=== PATIENT | female | born 1985 | race Hispanic/Latino ===

== ENCOUNTER 2019-10-29 00:09 | Inpatient (IN) | payer SELFPAY ==
[2019-10-29] VITALS (26 sets, daily range): BP systolic 97–154; BP diastolic 52–82; PULSE 84–138; RESP 16–26; TEMP 36.7–37.5; O2SAT 97–100; BMI 27.2
--- NOTE | ~2019-10-29 | US_ITS ---
US right upper quadrant INDICATION: Elevated liver function tests PROCEDURE: Realtime right upper abdominal ultrasound. COMPARISON: No prior studies for comparison. FINDINGS: The pancreas is normal without focal mass or pancreatic ductal dilation. Liver echotexture is normal without focal mass or intrahepatic biliary dilatation. There is normal directional flow i n the portal vein. The gallbladder is normal without stones, gallbladder wall thickening or pericholecystic fluid. Comm on bile duct measures 4 mm. No sonographic Hollis's sign. IMPRESSION: 1: Normal limited abdominal ultrasound. Reviewed, dictated and finalized at location A.
[2019-10-29 00:21] LABS: Glucose Point of Care > 500 (65-105)
[2019-10-29] MEDS: ONDANSETRON INJ 4 MG/2 ML VIAL IV PUSH (00:35)
[2019-10-29] MEDS: SODIUM CHLORIDE 0.9% IV 1,000 ML 999 ML IV CONT ×4 (00:35→05:47)
[2019-10-29 00:42] LABS: Basophils Absolute Auto 0.1 K/mm3 (0.0-0.1); Basophils Percent Auto 0.4 % (0.2-1.2); Hematocrit 45.2 % (37.0-47.0); Hemoglobin 14.2 g/dL (12.0-15.0); Immature Granulocyte Absolute 0.35 K/mm3 (0.00-0.031); Immature Granulocyte Percent A 1.5 % (0-0.5); Lymphocytes Absolute Auto 1.74 K/mm3 (0.9-3.2); Lymphocytes Percent Auto 7.3 % (18.3-44.2); Mean Corpuscular HGB Conc 31.4 g/dl (32-36); Mean Corpuscular Hemoglobin 28.1 pg (26-34); Mean Corpuscular Volume 89.3 fl (80-100); Mean Platelet Volume 10.2 fl (7.4-10.4); Monocytes Absolute Auto 1.7 K/mm3 (0.1-0.6); Monocytes Percent Auto 7.3 % (2.6-8.5); Neutrophils Absolute Auto 19.8 K/mm3 (1.3-6.7); Neutrophils Percent Auto 83.5 % (45.5-73.1); Platelet Count Result 470 k/mm3 (150-375); Red Blood Count 5.06 M/mm3 (4.2-5.4); Red Cell Distribution Width 12.7 % (11.5-14.5); White Blood Count 23.7 K/mm3 (4.5-10.0)
[2019-10-29 00:49] LABS: Add Urine Microscopic? YES; Appearance Urine Clear (Clear); Bilirubin Urine Negative (Negative); Blood Urine Negative (Negative); Color Urine Colorless (Yellow); Glucose Urine UA 3+ mg/dL (Negative); Ketones Urine 2+ mg/dL (Negative); Leukocyte Esterase Ur Negative LEU/UL (Negative); Mucus Urine Rare /lpf; Nitrate Urine Negative (Negative); Protein Urine 2+ mg/dL (Negative); RBC Urine 0-2 /hpf (0-2); Specific Grav Ur 1.015 (1.001-1.035); Squamous Epithelial Cell Urine Rare /hpf (Few); Urobilinogen Urine Negative mg/dL (<2.0); WBC Urine 0-3 /hpf
[2019-10-29 00:54] LABS: Alveolar/Arterial O2 Gradient 75.9 mmHg; Base Excess ABG -25.2 mEq/l (+/-2.0); Carboxyhemoglobin 0.4 % THb (0-2.0); Fractional Inspired Oxygen 21 %; HCO3 ABG 5.8 mEq/l (22.0-26.0); Methemoglobin ABG 0.6 %THb (0-1.5); Oxygen Content ABG 12.3 %vol (16.0-22.0); Oxyhemoglobin 58.3 % THb (90.0-100.0); PCO2 ABG 26.6 mmHg (35.0-45.0); Reduced Hemoglobin 40.7 %THb (0-5.0)
[2019-10-29 00:58] LABS: Modified Allen's Test Pass; Oxygen Saturation ABG 52.1 % (95.0-100.0); Site Drawn LEFT RADIAL; pH ABG 6.958 (7.350-7.450)
[2019-10-29 00:59] LABS: Device ROOM AIR
[2019-10-29] MEDS: INSULIN HUMAN REGULAR (*BKC) 100 UNITS in SODIUM CHLORIDE 0.9% IV 99 ML 8.8 UNITS IV CONT (01:05)
[2019-10-29 01:19] LABS: Alanine Aminotransferase 21 U/L (4-35); Albumin Level 5.2 g/dL (3.5-5.1); Alkaline Phosphatase 121 U/L (38-126); Aspartate Amino Transferase 33 U/L (14-36); Bilirubin,Total 0.8 mg/dL (0.2-1.3); Blood Urea Nitrogen 17 mg/dL (7-17); Calcium 9.5 mg/dL (8.4-10.2); Carbon Dioxide < 5 mmol/L (22-30); Chloride 100 mmol/L (98-107); Estimated CRCL calculation 80 ml/min; Estimated Glomerular Filt Rate > 60; Magnesium 2.1 mg/dL (1.6-2.3); Phosphorus 7.6 mg/dL (2.5-4.5); Potassium 5.2 mmol/L (3.4-5.0); Sodium 136 mmol/L (137-145)
--- NOTE | 2019-10-29 01:42 | ED.NAVMDI ---
HPI - Nausea/Vomiting/Diarrhea General Chief complaint: Recheck/Abnormal Lab/Rx Stated complaint: dka Time Seen by Provider: 10/29/19 00:19 Source: patient Mode of arrival: ambulatory Limitations: no limitations History of Present Illness HPI Narrative: Patient is a 41-year-old female who presents to the emergency department with complaint of nausea and vomiting, high blood sugar, and feeling as though she is in DKA. Patient is a type I diabetic who is normally maintained on insulin pump. Patient does not regularly check her blood sugar and states when she does it typically runs in the 200s. Patient reports having approximately 8 beers on Wednesday night and waking up with nausea and vomiting yesterday morning. Patient has been unable to keep down fluids all day. She began feeling as though she was in DKA and checked her blood sugar and it was in the 400s. Patient noticed that her insulin pump was not working. Patient did not have any syringes to manually administer any insulin at home. Patient states last time she had checked her blood sugar was a couple of days ago. Patient's last episode of DKA was in April 2018. Patient sees an head sampler at [place]. Patient denies any recent illness symptoms. MD elicited complaint: nausea, vomiting and other (High blood sugar, DKA) Pertinent past history: other (Diabetes) Onset (ago): day(s) (1) Associated nausea: Yes Associated abdominal pain: No Location of pain: none Related Data Allergies Allergy/AdvReac Type Severity Reaction Status Date / Time No Known Allergies Allergy Verified 10/29/19 00:30 Review of Systems Review of Systems: All systems reviewed & are unremarkable except as noted in HPI and below Constitutional: Constitutional: Denies fever(s) Respiratory: Respiratory: Denies cough and Denies dyspnea Gastrointestinal: Gastrointestinal: Denies abdominal pain, Reports nausea and Reports vomiting Genitourinary: Genitourinary: Denies dysuria Musculoskeletal: Musculoskeletal: Denies myalgias PMFSH Past Medical History Medical History Depression DKA (diabetic ketoacidoses) History of pre-eclampsia Type 1 diabetes Surgical History Surgical History History of section Social History Social History Smoking status: Never smoker Alcohol intake: current Exam Const: General: cooperative, no acute distress and alert Nutritional Appearance: well nourished Orientation/consciousness: patient oriented x3 Limitations: no limitations HENMT: Mouth: Yes lip normal and Yes dry mucous membranes Resp: Effort & Inspection: normal respiratory effort and tachypneic Auscultation: clear to auscultation bilaterally Cardio: Rate: tachycardic Rhythm: regular rhythm GI: GI Palp: Yes Soft to palpation and No Tenderness to palpation present (GI) Auscultation: normal bowel sounds Skin: General skin exam: normal color Neuro: General: patient oriented x3 Cognition (Neuro): normal cognition Speech: normal speech Extrem: General: normal to inspection, full ROM and no clubbing, cyanosis or edema Psych: Mental Status: mental status grossly normal Affect: normal affect Attitude: cooperative Course Course Emergency Course: Patient with findings of diabetic ketoacidosis. Patient given 2 L IV fluid bolus in the emergency department and started on insulin drip. Patient admitted to ICU for further care. Case discussed with chainstitch seat joiner and hospitalist. Patient advised of diagnosis and admission plan. Consultations Consultation #1: Case discussed with Dr. Hdz, chainstitch seat joiner, who accepts patient to ICU. Date: 10/29/19 Time: 01:14 Consultation #2: Case discussed with Dr. Lyles, hospitalist, who accepts patient for admission. Date: 10/29/19 Time: 01:25 Vital Signs Vital signs: Vital Signs Temper
--- NOTE | 2019-10-29 01:42 | PC.NURSE ---
called lab to add on HGB A1C
[2019-10-29 01:56] LABS: Glucose Point of Care 376 (65-105)
[2019-10-29 01:57] LABS: Hemoglobin A1C 8.8 % (<5.7)
[2019-10-29 02:00] LABS: Beta-Hydroxybutyrate/Acetoacetate 9.98 mmol/L (0.02-0.27)
--- NOTE | 2019-10-29 03:00 | PC.NURSE ---
This patient, Em Rivera, was admitted to Intensive Care Unit-12. Patient/family oriented to hospital policies and general routines including ID bracelet, bed and alarms, visiting hours, pain management, procedures, bathroom and other care routines, personal items, smoking policy, room service/diet, and visiting hours. Valuables list has been completed. Information on how to activate the Rapid Response Team has been discussed. Patient/Family are encouraged to report perceived risks to care and to ask questions if they do not understand what they are told or what they should do.
[2019-10-29 03:10] LABS: Glucose Point of Care 289 (65-105)
--- NOTE | 2019-10-29 03:33 | PM.IMHP ---
H&P: HPI History of Present Illness Chief complaint: DKA Narrative: This is a 33 year old type I diabetic female who presented to the hospital this evening with a complaint of nausea and vomiting all day yesterday and hyperglycemia. The patient is known to have an insulin pump which states has already failed her 2 times over the past year. She is known to see Endocrinology at [facility]. She reports going out with her friend Gomez night and drinking 8-10 beers. Yesterday morning she woke up with severe nausea and vomiting. She could not tolerate any oral intake and had continuous vomiting throughout the day. She reports also having polyuria. Associated symptoms include mild shortness of breath. 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 She denies any chest pain, palpitations, headache, fever, cough, diarrhea, rectal bleeding, dysuria, hematuria, open wounds or LE swelling. She is not known to be on any long acting insulin. The patient was evaluated in the ER tonight and found to be in acute DKA. Rheostat Assembler has been consulted and the patient has been given 1L NS IV bolus. She has been started on an insulin IV drip. Review of Systems Review of Systems: All systems reviewed & are unremarkable except as noted in HPI and below PMFSH Past Medical History Medical History Depression DKA (diabetic ketoacidoses) History of pre-eclampsia Type 1 diabetes Surgical History Surgical History History of section Family History Family History Sibling Cerebrovascular accident Father Diabetes mellitus Social History Social History Smoking status: Never smoker Second hand tobacco smoke exposure: Yes Alcohol intake: current Drinks per week: 8 Substance use: never Substance use type: does not use Gender identity (if verbalized by the patient): Female Spiritual care concerns: No Agree to blood products: Yes Meds Home Medications and Allergies Home Medications Medication Instructions Recorded Confirmed Type duloxetine [Cymbalta] 20 mg PO DAILY 10/29/19 10/29/19 History Allergies Allergy/AdvReac Type Severity Reaction Status Date / Time No Known Allergies Allergy Verified 10/29/19 00:30 Vital Signs Vital Signs - 24 hr 10/29/19 00:12 10/29/19 00:32 10/29/19 00:33 Temperature 37.4 C Pulse Rate 130 H 121 H 120 H Respiratory Rate 23 H 23 H 23 H Blood Pressure 154/82 H 134/67 Pulse Oximetry 99 100 100 10/29/19 00:45 10/29/19 00:46 10/29/19 01:00 Temperature Pulse Rate 119 H 126 H 121 H Respiratory Rate 20 20 23 H Blood Pressure 112/71 Pulse Oximetry 100 100 100 10/29/19 01:01 10/29/19 01:15 10/29/19 01:59 Temperature Pulse Rate 121 H 118 H 125 H Respiratory Rate 23 H 24 H 26 H Blood Pressure 103/60 Pulse Oximetry 100 100 100 10/29/19 02:00 10/29/19 02:01 10/29/19 02:15 Temperature Pulse Rate 124 H 123 H 138 H Respiratory Rate 25 H 24 H 25 H Blood Pressure 124/64 Pulse Oximetry 100 97 100 10/29/19 02:19 Temperature 37.5 C Pulse Rate 138 H Respiratory Rate 20 Blood Pressure 124/60 Pulse Oximetry 99 Exam Const: General: cooperative, alert and awake Nutritional Appearance: well nourished Orientation/consciousness: patient oriented x3 HENMT: Head: normal to inspection General nose exam: Normal external nose present Face and sinus: normal facial exam Mouth: Yes Normal oral and palatal mucosa present and Yes oropharynx normal Eyes: Pupils: Equal, round and reactive pupils present EOM: EOMs intact bilaterally Neck: Neck: supple and no JVD Thyroid: thyroid normal Lymphatic: lymphadenopathy not noted Resp: Effort & Inspection: tachypneic Auscultation: clear to auscultation bilaterally Cardio: Rate: tac
--- NOTE | 2019-10-29 03:38 | ECG_ITS ---
Measurements Intervals [place] Rate: 124 P: 68 LA: 139 QRS: 71 QRSD: 86 T: 4 QT: 307 QTc: 442 Interpretive Statements SINUS TACHYCARDIA BORDERLINE T WAVE ABNORMALITY- INFERIOR LEADS BASELINE ARTIFACT- II, III, AVR, AVL, AVF ABNORMAL ECG Electronically Signed On 10-29-2019 8:35:47 CDT by Jayy Munson D.O.
[2019-10-29 04:13] LABS: Basophils Absolute Auto 0.1 K/mm3 (0.0-0.1); Basophils Percent Auto 0.4 % (0.2-1.2); Hematocrit 44.3 % (37.0-47.0); Hemoglobin 13.3 g/dL (12.0-15.0); Immature Granulocyte Percent A 2.2 % (0-0.5); Lymphocytes Percent Auto 7.8 % (18.3-44.2); Mean Corpuscular Hemoglobin 27.7 pg (26-34); Mean Corpuscular Volume 92.1 fl (80-100); Mean Platelet Volume 9.9 fl (7.4-10.4); Monocytes Absolute Auto 2.2 K/mm3 (0.1-0.6); Monocytes Percent Auto 9.4 % (2.6-8.5); Neutrophils Absolute Auto 18.4 K/mm3 (1.3-6.7); Neutrophils Percent Auto 80.2 % (45.5-73.1); Platelet Count Result 363 k/mm3 (150-375); Red Blood Count 4.81 M/mm3 (4.2-5.4); Red Cell Distribution Width 12.6 % (11.5-14.5)
[2019-10-29 04:25] LABS: Glucose Point of Care 227 (65-105)
[2019-10-29 04:29] LABS: Blood Urea Nitrogen 15 mg/dL (7-17); Carbon Dioxide 6 mmol/L (22-30); Chloride 112 mmol/L (98-107); Estimated CRCL calculation 90 ml/min; Estimated Glomerular Filt Rate > 60; Glucose 256 mg/dL (65-105); Potassium 4.6 mmol/L (3.4-5.0); Sodium 140 mmol/L (137-145)
[2019-10-29 04:53] LABS: Magnesium 1.8 mg/dL (1.6-2.3)
[2019-10-29 05:14] LABS: Glucose Point of Care 201 (65-105)
[2019-10-29 05:41] LABS: Alveolar/Arterial O2 Gradient 25.8 mmHg; Base Excess ABG -20.3 mEq/l (+/-2.0); Fractional Inspired Oxygen 21 %; HCO3 ABG 6.3 mEq/l (22.0-26.0); Oxygen Content ABG 17.5 %vol (16.0-22.0); Oxygen Saturation ABG 96.3 % (95.0-100.0); Oxyhemoglobin 95.8 % THb (90.0-100.0); PO2 ABG 102.3 mmHg (80.0-100.0); PO2 FiO2 Ratio Arterial Blood 4.87 %; Total Hemoglobin 12.9 g/dL (12.0-18.0)
[2019-10-29 05:43] LABS: Device ROOM AIR; Modified Allen's Test Pass; PCO2 ABG 18.1 mmHg (35.0-45.0); Site Drawn RIGHT RADIAL; pH ABG 7.161 (7.350-7.450)
[2019-10-29 06:07] LABS: Glucose Point of Care 169 (65-105)
[2019-10-29] MEDS: KCL 20 MEQ/D5/0.45% SOD CHL 1,000 ML 50 ML IV CONT (06:46)
[2019-10-29] MEDS: SODIUM BICARBONATE 8.4% 150 MEQ in DEXTROSE 5% 1,000 ML 950 ML 100 MEQ IV PUSH (06:46)
[2019-10-29 07:05] LABS: Glucose Point of Care 137 (65-105)
[2019-10-29 08:12] LABS: Glucose Point of Care 204 (65-105)
[2019-10-29 09:04] LABS: Glucose Point of Care 179 (65-105)
--- NOTE | 2019-10-29 09:19 | WPDCNINT ---
Assessment and Plan Assessment and plan (1) DKA (diabetic ketoacidoses): Qualifiers: Diabetes mellitus complication detail: without coma Diabetes mellitus type: type 1 Qualified Code(s): E10.10 - Type 1 diabetes mellitus with ketoacidosis without coma Code(s): E11.10 - Type 2 diabetes mellitus with ketoacidosis without coma Status: Acute Assessment and Plan: patient on IV insulin infusion received 4 L of IV fluid bolus and now on IV fluids with bicarb at 100 and D5 half-normal saline at 50. IV fluid with bicarb was started started overnight for hyperchloremia and acidosis will continue to monitor serial BMPs every 4 hours I will wait for next result before further adjusting IV fluids (2) Leukocytosis: Code(s): D72.829 - Elevated white blood cell count, unspecified Status: Acute Assessment and Plan: likely secondary to DKA monitor (3) Dehydration: Code(s): E86.0 - Dehydration Status: Acute Assessment and Plan: patient aggressively hydrated and received 4 L of IV fluid bolus continue IV fluids at this time blood pressure adequate (4) Nausea & vomiting: Code(s): R11.2 - Nausea with vomiting, unspecified Status: Acute Assessment and Plan: resolved with Zofran will start on liquid diet and advance as tolerated (5) Hyperkalemia: Code(s): E87.5 - Hyperkalemia Status: Acute Assessment and Plan: secondary to acidosis and has now resolved Manufacturing Process Technician Consult Note Consult date: 10/29/19 Time Seen: 09:00 HPI: Em Rivera is a 33 year old female with past medical history of type 1 diabetes and on insulin pump presented with chief complaint of nausea and vomiting to ER yesterday. patient had 8-10 beers on Wednesday night and when she woke up in the morning with nausea and vomiting. per patient she vomited at least 8 times at home before coming to the hospital. she did not notice any blood or food in the vomitus it was my only liquids that she was trying to drink to remain hydrated. 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 In general she told me she takes around 26-27 units of basal insulin and around 7 units of insulin bolus with meal depending on her carbs. in ED patient was found to be in DKA. patient was given IV fluid bolus and started on IV insulin and admitted to ICU this morning patient feels better and does not have any new complaints. She states that her nausea vomiting has resolved and she would like to eat. She does not want to go back on insulin pump at this time. She denies any other complaint. She denies any chest pain shortness of breath cough headache abdominal pain fever joint aches or muscle aches dysuria hematuria or frequency diarrhea headache dizziness or lightheadedness. no weakness Review of Systems Review of Systems: All systems reviewed & are unremarkable except as noted in HPI and below ( HPI) [facility] Past Medical History Medical History Depression DKA (diabetic ketoacidoses) History of pre-eclampsia Type 1 diabetes Surgical History Surgical History History of section Family History Family History Sibling Cerebrovascular accident Father Diabetes mellitus Social History Social History Smoking status: Never smoker Second hand tobacco smoke exposure: Yes Alcohol intake: current Drinks per week: 8 Substance use: never Substance use type: does not use Gender identity (if verbalized by the patient): Female Spiritual care concerns: No Agree to blood products: Yes Meds Home Medications and Allergies Home Medications Medication Instructions Recorded Confirmed Type duloxetine [Cymbalta] 20 mg P
[2019-10-29 09:23] LABS: Blood Urea Nitrogen 12 mg/dL (7-17); Calcium 7.9 mg/dL (8.4-10.2); Carbon Dioxide 8 mmol/L (22-30); Chloride 115 mmol/L (98-107); Estimated CRCL calculation 104 ml/min; Estimated Glomerular Filt Rate > 60; Glucose 151 mg/dL (65-105); Potassium 4.1 mmol/L (3.4-5.0); Sodium 138 mmol/L (137-145)
[2019-10-29 09:57] LABS: Glucose Point of Care 145 (65-105)
[2019-10-29] MEDS: CALCIUM GLUC 2,000 MG/NS 100ML 2,000 MG/100 ML BAG 100 MG IVPB (10:47)
[2019-10-29 10:48] LABS: Beta HCG Quantitative < 2.39 mIU/ML
[2019-10-29 10:59] LABS: Glucose Point of Care 175 (65-105)
[2019-10-29 12:05] LABS: Glucose Point of Care 161 (65-105)
[2019-10-29 12:49] LABS: Blood Urea Nitrogen 12 mg/dL (7-17); Calcium 8.2 mg/dL (8.4-10.2); Carbon Dioxide 16 mmol/L (22-30); Chloride 110 mmol/L (98-107); Estimated CRCL calculation 149 ml/min; Estimated Glomerular Filt Rate > 60; Glucose 132 mg/dL (65-105); Potassium 3.5 mmol/L (3.4-5.0); Sodium 134 mmol/L (137-145)
[2019-10-29 13:06] LABS: Glucose Point of Care 137 (65-105)
[2019-10-29] MEDS: INSULIN GLARGINE (*BKC) 100 UNITS/ML 20 UNITS SUB-Q (13:59)
[2019-10-29 14:00] LABS: Glucose Point of Care 110 (65-105)
[2019-10-29] MEDS: SODIUM CHLORIDE 0.45% 1,000 ML 75 ML IV CONT (14:00)
--- NOTE | 2019-10-29 14:35 | PM.IMPN ---
Progress Note: A&P Assessment and Plan (1) DKA (diabetic ketoacidoses): Qualifiers: Diabetes mellitus complication detail: without coma Diabetes mellitus type: type 1 Qualified Code(s): E10.10 - Type 1 diabetes mellitus with ketoacidosis without coma Code(s): E11.10 - Type 2 diabetes mellitus with ketoacidosis without coma Status: Acute Assessment and Plan: w/ hyperglycemia, metabolic acidosis w/ elevated anion gap, and elevated serum ketones. IV insulin therapy has transition to SC insulin now that anion gap is at 8 although CO2 is still 16. She received short-acting and Lantus and will advance diet and recheck electrolytes with phosphorus level in 4-5 hours. The patient states she is discontinuing her insulin pump as the most plausible explanation for her acute DKA is that her insulin pump failed. If continues to do well and transitioned and CO2 continues to rise then possibly discharge early as 10/29 (2) Leukocytosis: Code(s): D72.829 - Elevated white blood cell count, unspecified Status: Acute Assessment and Plan: Likely seconadry to acute DKA and dehydration. No signs of acute infection at this time. Recheck CBC and a.m. 10/29 (3) Dehydration: Code(s): E86.0 - Dehydration Status: Acute Assessment and Plan: BUN and creatinine have remained normal and with aggressive hydration fluid status is resuscitated (4) Depression: Code(s): F32.9 - Major depressive disorder, single episode, unspecified Status: Acute Assessment and Plan: Resume home meds when appropriate. Subjective Date/time seen: 10/29/19 14:35 Interval history: Date of visit 10/28. 33-year-old type 1 diabetic admitted with diabetic ketoacidosis with nausea and vomiting. Patient states has been having trouble with her insulin pump which has malfunctioned in the past. She denies any cough dysuria or other symptomatology. After IV fluids and IV insulin she is feeling much better this a.m. Exam Narrative: Exam Narrative: Blood pressure 100/62 pulse is 94 saturating 100% on room air respirations 16 per minute afebrile Pupils equal reactive light sclera anicteric Lungs clear CV regular rate rhythm Abdomen is soft nontender no masses Extremities without edema distal pulses are 2+ Neuro alert pleasant cooperative no focal deficits Objective Data Vital Signs Vital Signs: Vital Signs - 24 hr 10/29/19 00:12 10/29/19 00:32 10/29/19 00:33 Temperature 37.4 C Pulse Rate 130 H 121 H 120 H Respiratory Rate 23 H 23 H 23 H Blood Pressure 154/82 H 134/67 Pulse Oximetry 99 100 100 10/29/19 00:45 10/29/19 00:46 10/29/19 01:00 Temperature Pulse Rate 119 H 126 H 121 H Respiratory Rate 20 20 23 H Blood Pressure 112/71 Pulse Oximetry 100 100 100 10/29/19 01:01 10/29/19 01:15 10/29/19 01:59 Temperature Pulse Rate 121 H 118 H 125 H Respiratory Rate 23 H 24 H 26 H Blood Pressure 103/60 Pulse Oximetry 100 100 100 10/29/19 02:00 10/29/19 02:01 10/29/19 02:15 Temperature Pulse Rate 124 H 123 H 138 H Respiratory Rate 25 H 24 H 25 H Blood Pressure 124/64 Pulse Oximetry 100 97 100 10/29/19 02:19 10/29/19 02:40 10/29/19 03:00 Temperature 37.5 C 37.2 C Pulse Rate 138 H 136 H 131 H Respiratory Rate 20 24 H 24 H Blood Pressure 124/60 128/72 112/72 Pulse Oximetry 99 100 99 10/29/19 04:00 10/29/19 05:00 10/29/19 06:00 Temperature 37.2 C Pulse Rate 122 H 111 H 113 H Respiratory Rate 22 H 24 H 22 H Blood Pressure 109/66 105/58 L 107/60 Pulse Oximetry 100 100 100 10/29/19 08:00 10/29/19 10:00 10/29/19 12:00 Temperature 37.4 C 37.1 C Pulse Rate 114 H 103 H 99 Respiratory Rate 20 Blood Pressure 100/56 L 97/59 L 101/55 L Pulse Oximetry 100 100 99 10/29/19 13:39 10/29/19 14:00 Temperature Pulse Rate 96 95 Respiratory Rate 20 Blood Pressure 100/62 Pulse Oximetry 100 Intake/Output Intake/Output: Intake & Output /
[2019-10-29 16:53] LABS: Albumin Level 3.8 g/dL (3.5-5.1); Blood Urea Nitrogen 12 mg/dL (7-17); Calcium 8.5 mg/dL (8.4-10.2); Carbon Dioxide 17 mmol/L (22-30); Chloride 107 mmol/L (98-107); Estimated CRCL calculation 149 ml/min; Estimated Glomerular Filt Rate > 60; Glucose 89 mg/dL (65-105); Phosphorus 2.9 mg/dL (2.5-4.5); Potassium 3.6 mmol/L (3.4-5.0); Sodium 136 mmol/L (137-145)
[2019-10-29 21:49] LABS: Glucose Point of Care 208 (65-105)
[2019-10-30] VITALS (8 sets, daily range): BP systolic 108–131; BP diastolic 72–101; PULSE 88–99; RESP 16–22; TEMP 36.7–37.5; O2SAT 98–100; BMI 27.2
[2019-10-30 04:57] LABS: Basophils Percent Auto 0.2 % (0.2-1.2); Eosinophils Percent Auto 0.2 % (0-4.4); Hematocrit 43.9 % (37.0-47.0); Hemoglobin 14.2 g/dL (12.0-15.0); Immature Granulocyte Absolute 0.07 K/mm3 (0.00-0.031); Immature Granulocyte Percent A 0.6 % (0-0.5); Lymphocytes Absolute Auto 2.41 K/mm3 (0.9-3.2); Lymphocytes Percent Auto 19.3 % (18.3-44.2); Mean Corpuscular HGB Conc 32.3 g/dl (32-36); Mean Corpuscular Hemoglobin 27.8 pg (26-34); Mean Corpuscular Volume 85.9 fl (80-100); Mean Platelet Volume 9.6 fl (7.4-10.4); Monocytes Absolute Auto 0.8 K/mm3 (0.1-0.6); Monocytes Percent Auto 6.2 % (2.6-8.5); Neutrophils Absolute Auto 9.2 K/mm3 (1.3-6.7); Neutrophils Percent Auto 73.5 % (45.5-73.1); Platelet Count Result 372 k/mm3 (150-375); Red Blood Count 5.11 M/mm3 (4.2-5.4); White Blood Count 12.5 K/mm3 (4.5-10.0)
[2019-10-30 05:11] LABS: Albumin Level 4.1 g/dL (3.5-5.1); Blood Urea Nitrogen 7 mg/dL (7-17); Calcium 8.3 mg/dL (8.4-10.2); Carbon Dioxide 13 mmol/L (22-30); Chloride 105 mmol/L (98-107); Estimated CRCL calculation 122 ml/min; Estimated Glomerular Filt Rate > 60; Glucose 212 mg/dL (65-105); Magnesium 1.8 mg/dL (1.6-2.3); Phosphorus 2.1 mg/dL (2.5-4.5); Potassium 3.5 mmol/L (3.4-5.0); Sodium 134 mmol/L (137-145)
[2019-10-30 06:59] LABS: Albumin Level 4.1 g/dL (3.5-5.1); Phosphorus 2.1 mg/dL (2.5-4.5)
--- NOTE | 2019-10-30 07:00 | WPDINTPN ---
Progress Note: A&P Assessment and Plan (1) DKA (diabetic ketoacidoses): Qualifiers: Diabetes mellitus complication detail: without coma Diabetes mellitus type: type 1 Qualified Code(s): E10.10 - Type 1 diabetes mellitus with ketoacidosis without coma Code(s): E11.10 - Type 2 diabetes mellitus with ketoacidosis without coma Status: Acute Assessment and Plan: Patient was treated with IV fluids and IV insulin on admission. On 10/28, her anion gap closed and patient was transitioned to subcutaneous insulin. BMP done this morning showed a increased anion gap and patient was restarted on insulin infusion. IV fluids resumed and will continue will check BMP every 4 hours and with next BMP I will check beta hydroxybutyrate level once anion gap is closed will transition her back to subcutaneous insulin hyperchloremia has improved will continue to monitor serial BMPs every 4 hours I will wait for next result before further adjusting IV fluids (2) Leukocytosis: Code(s): D72.829 - Elevated white blood cell count, unspecified Status: Acute Assessment and Plan: likely secondary to DKA improving monitor (3) Dehydration: Code(s): E86.0 - Dehydration Status: Acute Assessment and Plan: patient aggressively hydrated and received 4 L of IV fluid bolus continue IV fluids at this time blood pressure adequate (4) Nausea & vomiting: Code(s): R11.2 - Nausea with vomiting, unspecified Status: Acute Assessment and Plan: resolved with Zofran continue diabetic diet (5) Hypophosphatemia: Code(s): E83.39 - Other disorders of phosphorus metabolism Status: Acute Assessment and Plan: patient receiving IV K-Phos Additional Plan SCDs for DVT prophylaxis Subjective Date/time seen: 10/30/19 0700 Interval history: 33-year-old type 1 diabetic admitted with diabetic ketoacidosis with nausea and vomiting. patient was treated with IV fluids and IV insulin. On10/28, her anion gap closed and patient was transitioned to subcutaneous insulin. BMP done this morning showed a increased anion gap and patient was restarted on insulin infusion. She herself feels better this morning and denies any complaint. She is disappointed that she was not able to go home today. Notes no nausea vomiting or abdominal pain at this time. she ate half of cheese burger last night Review of Systems Constitutional: Constitutional: Reports no additional constitutional complaints Eyes: Eyes: Reports no additional eye complaints ENT: Reports system reviewed and no additional complaints, except as documented Cardiovascular: Cardiovascular: Reports no additional cardiovascular complaints Respiratory: Respiratory: Reports no additional respiratory complaints Gastrointestinal: Gastrointestinal: Reports no additional gastrointestinal complaints Genitourinary: Genitourinary: Reports no additional female genitourinary complaints Musculoskeletal: Musculoskeletal: Reports no additional musculoskeletal complaints Integumentary/Breasts: Skin/Breast: Reports system reviewed and no additional complaints, except as docu Neurologic: Reports system reviewed and no additional complaints, except as documented Psychiatric: Psychiatric: Reports no additional psychiatric complaints Endocrine: Endocrine: Reports no additional endocrine complaints Hematologic/Lymphatic: Hematologic/Lymphatic: Reports no additional hematologic/lymphatic complaints Allergic/Immunologic: Allergic/Immunologic: Reports no additional allergic/immunologic complaints Exam Narrative: Exam Narrative: General: Pt is alert awake and in NAD Lungs/Chest: Trachea central Clear BS B/L, No crackles or wheezing. Cardiac: RRR. Normal S1 S2. No murmurs Circulation: Pedal pulses are intact and symmetrical. Abdomen: Normal bowel sounds. Soft. NT. ND. Extremities: No clubbing, cyanosis or edema. Warm G
[2019-10-30] MEDS: KCL 20 MEQ/D5/0.9% SOD CHL 1,000 ML 100 ML IV CONT (07:03)
[2019-10-30] MEDS: INSULIN HUMAN REGULAR (*BKC) 100 UNITS in SODIUM CHLORIDE 0.9% IV 99 ML IV CONT (07:04)
[2019-10-30] MEDS: POTASSIUM PHOS,M-BASIC-D-BASIC 20 MMOL in SODIUM CHLORIDE 0.9% IV 250 ML 64 MMOL IVPB (07:04)
[2019-10-30 07:06] LABS: Hemoglobin A1C 8.7 % (<5.7)
[2019-10-30 08:12] LABS: Glucose Point of Care 212 (65-105)
[2019-10-30 08:24] LABS: Beta-Hydroxybutyrate/Acetoacetate 6.32 mmol/L (0.02-0.27)
[2019-10-30 09:13] LABS: Glucose Point of Care 287 (65-105)
[2019-10-30 10:09] LABS: Glucose Point of Care 245 (65-105)
[2019-10-30 11:29] LABS: Glucose Point of Care 233 (65-105)
[2019-10-30 11:49] LABS: Albumin Level 3.4 g/dL (3.5-5.1); Blood Urea Nitrogen 6 mg/dL (7-17); Calcium 8.3 mg/dL (8.4-10.2); Carbon Dioxide 19 mmol/L (22-30); Chloride 107 mmol/L (98-107); Estimated CRCL calculation 149 ml/min; Estimated Glomerular Filt Rate > 60; Glucose 214 mg/dL (65-105); Phosphorus 2.1 mg/dL (2.5-4.5); Potassium 3.1 mmol/L (3.4-5.0); Sodium 134 mmol/L (137-145)
[2019-10-30 12:06] LABS: Glucose 506 mg/dL (65-105)
[2019-10-30 12:48] LABS: Glucose Point of Care 133 (65-105)
[2019-10-30] MEDS: POTASSIUM CHLORIDE 20 MEQ TABLET 40 MEQ PO ×2 (13:06→18:18)
[2019-10-30 14:14] LABS: Glucose Point of Care 123 (65-105)
[2019-10-30 14:36] LABS: Glucose Point of Care 192 (65-105)
[2019-10-30 15:42] LABS: Glucose Point of Care 156 (65-105)
[2019-10-30 16:08] LABS: Alanine Aminotransferase 40 U/L (4-35); Albumin Level 3.3 g/dL (3.5-5.1); Alkaline Phosphatase 64 U/L (38-126); Aspartate Amino Transferase 77 U/L (14-36); Bilirubin,Total 0.3 mg/dL (0.2-1.3); Blood Urea Nitrogen 5 mg/dL (7-17); Calcium 8.1 mg/dL (8.4-10.2); Carbon Dioxide 21 mmol/L (22-30); Chloride 109 mmol/L (98-107); Estimated CRCL calculation 149 ml/min; Estimated Glomerular Filt Rate > 60; Glucose 128 mg/dL (65-105); Potassium 3.3 mmol/L (3.4-5.0); Sodium 136 mmol/L (137-145)
[2019-10-30 16:10] LABS: Albumin Level 3.1 g/dL (3.5-5.1); Blood Urea Nitrogen 6 mg/dL (7-17); Calcium 8.1 mg/dL (8.4-10.2); Carbon Dioxide 22 mmol/L (22-30); Chloride 107 mmol/L (98-107); Estimated CRCL calculation 149 ml/min; Estimated Glomerular Filt Rate > 60; Glucose 125 mg/dL (65-105); Phosphorus 2.8 mg/dL (2.5-4.5); Potassium 3.4 mmol/L (3.4-5.0); Sodium 136 mmol/L (137-145)
--- NOTE | 2019-10-30 17:05 | PM.IMPN ---
Progress Note: A&P Assessment and Plan (1) DKA (diabetic ketoacidoses): Qualifiers: Diabetes mellitus complication detail: without coma Diabetes mellitus type: type 1 Qualified Code(s): E10.10 - Type 1 diabetes mellitus with ketoacidosis without coma Code(s): E11.10 - Type 2 diabetes mellitus with ketoacidosis without coma Status: Acute Assessment and Plan: w/ hyperglycemia, metabolic acidosis w/ elevated anion gap, and elevated serum ketones. IV insulin restarted this am when co2 only 13 and increased gap. K 3.5 so will replace K and phos too. The patient states she is discontinuing her insulin pump as the most plausible explanation for her acute DKA is that her insulin pump failed. hopefully back to sc insulin this pm off drip (2) Leukocytosis: Code(s): D72.829 - Elevated white blood cell count, unspecified Status: Acute Assessment and Plan: Likely seconadry to acute DKA and dehydration. No signs of acute infection at this time. CBC this am wbc 12.5 and will recheck am (3) Dehydration: Code(s): E86.0 - Dehydration Status: Acute Assessment and Plan: BUN and creatinine have remained normal and with aggressive hydration fluid status is resuscitated (4) Depression: Code(s): F32.9 - Major depressive disorder, single episode, unspecified Status: Acute Assessment and Plan: Resume home meds when appropriate. (5) Elevated LFTs: Code(s): R79.89 - Other specified abnormal findings of blood chemistry Status: Acute Assessment and Plan: mild elevated probable secondary to fatty infiltration but check hep profile Subjective Date/time seen: 10/30/19 17:05 Interval history: Date of visit 10/29. 33-year-old type 1 diabetic admitted with diabetic ketoacidosis with nausea and vomiting. Patient states has been having trouble with her insulin pump which has malfunctioned in the past. She denies any cough dysuria or other symptomatology. After IV fluids and IV insulin she felt much better and transitioned to Lantus off drip yesterday when gap closed but slipped back into DKA this am with co2 13. Feels ok no more nausea and ate ok Exam Narrative: Exam Narrative: Blood pressure 122/80 pulse is 96 saturating 100% on room air respirations 16 per minute afebrile Pupils equal reactive light sclera anicteric Lungs clear CV regular rate rhythm Abdomen is soft nontender no masses Extremities without edema distal pulses are 2+ Neuro alert pleasant cooperative no focal deficits Objective Data Vital Signs Vital Signs: Vital Signs - 24 hr 10/29/19 19:53 10/29/19 21:29 10/30/19 08:00 Temperature 36.7 C 37.5 C Pulse Rate 84 84 90 Respiratory Rate 16 18 22 H Blood Pressure 98/52 L 123/80 Pulse Oximetry 100 100 100 10/30/19 10:00 10/30/19 12:00 10/30/19 14:00 Temperature 37.0 C Pulse Rate 90 95 93 Respiratory Rate 21 H 21 H 18 Blood Pressure 131/101 H 119/79 120/78 Pulse Oximetry 100 100 100 10/30/19 16:00 Temperature 36.8 C Pulse Rate 90 Respiratory Rate 18 Blood Pressure 108/75 Pulse Oximetry 100 Intake/Output Intake/Output: Intake & Output 10/27/19 10/28/19 10/29/19 10/30/19 23:59 23:59 23:59 23:59 Intake Total 6101 600 Output Total 2300 1200 Balance 3801 -600 Meds/Results Medications: Active Medications Generic Name Dose Route Start Last Admin Trade Name Freq PRN Reason Stop Dose Admin Dextrose 12.5 gm 10/29/19 01:36 Dextrose 50% Syringe IV PUSH PRN PRN Hypoglycemia Protocol Glucagon 1 mg 10/29/19 01:36 Glucagon For Inj IM PRN PRN Hypoglycemia Protocol Glucose 15 gm 10/29/19 01:36 Glutose 15 PO PRN PRN Hypoglycemia Protocol Dextrose 1,000 mls @ 100 mls/hr 10/29/19 01:36 Dextrose 5% 1,000 Ml IVPB PRN PRN Hypoglycemia Protocol Potassium Chloride/Dextrose/Sod Cl 1,000 mls @ 100 mls/hr 10/30/19 0
[2019-10-30] MEDS: INSULIN GLARGINE (*BKC) 100 UNITS/ML 25 UNITS SUB-Q (17:14)
[2019-10-30] MEDS: INSULIN ASPART (*BKC) 100 UNITS/ML 6 UNITS SUB-Q (18:16)
[2019-10-30 19:00] LABS: Glucose Point of Care 61 (65-105)
[2019-10-30 19:00] LABS: Glucose Point of Care 130 (65-105)
[2019-10-30 20:42] LABS: Glucose Point of Care 229 (65-105)
[2019-10-31] VITALS (9 sets, daily range): BP systolic 113–130; BP diastolic 76–92; PULSE 81–992; RESP 16–20; TEMP 36.7–36.9; O2SAT 98–100
[2019-10-31 04:22] LABS: Glucose Point of Care 242 (65-105)
[2019-10-31 05:01] LABS: Hematocrit 43.7 % (37.0-47.0); Hemoglobin 14.8 g/dL (12.0-15.0); Mean Corpuscular HGB Conc 33.9 g/dl (32-36); Mean Corpuscular Hemoglobin 27.8 pg (26-34); Mean Corpuscular Volume 82.1 fl (80-100); Mean Platelet Volume 9.7 fl (7.4-10.4); Platelet Count Result 400 k/mm3 (150-375); Red Blood Count 5.32 M/mm3 (4.2-5.4); Red Cell Distribution Width 12.8 % (11.5-14.5); White Blood Count 6.9 K/mm3 (4.5-10.0)
[2019-10-31 05:14] LABS: Alanine Aminotransferase 64 U/L (4-35); Albumin Level 4.3 g/dL (3.5-5.1); Alkaline Phosphatase 89 U/L (38-126); Aspartate Amino Transferase 101 U/L (14-36); Bilirubin,Total 0.7 mg/dL (0.2-1.3)
[2019-10-31 05:17] LABS: Blood Urea Nitrogen 4 mg/dL (7-17); Calcium 9.1 mg/dL (8.4-10.2); Carbon Dioxide 25 mmol/L (22-30); Chloride 100 mmol/L (98-107); Estimated CRCL calculation 149 ml/min; Estimated Glomerular Filt Rate > 60; Glucose 208 mg/dL (65-105); Magnesium 1.7 mg/dL (1.6-2.3); Phosphorus 3.1 mg/dL (2.5-4.5); Potassium 3.8 mmol/L (3.4-5.0); Sodium 135 mmol/L (137-145)
[2019-10-31 05:59] LABS: Hepatitis B Surface Antigen Negative (Negative)
[2019-10-31 06:05] LABS: HAV RESULT Negative (Negative); Hepatitis B Core IgM Result Negative (Negative)
[2019-10-31 06:17] LABS: Hepatitis C Virus Antibody Negative (Negative)
[2019-10-31] MEDS: INSULIN ASPART (*BKC) 100 UNITS/ML 6 UNITS SUB-Q (07:57)
[2019-10-31] MEDS: INSULIN ASPART (*BKC) 100 UNITS/ML SUB-Q (07:57)
[2019-10-31 08:16] LABS: Glucose Point of Care 218 (65-105)
[2019-10-31 12:11] LABS: Glucose Point of Care 251 (65-105)
--- NOTE | 2019-10-31 16:58 | PM.DS ---
DS: Diagnosis Admitting Diagnosis Admitting Diagnosis: Type 1 diabetes mellitus with ketoacidosis without coma Discharge Diagnosis (1) DKA (diabetic ketoacidoses): Qualifiers: Diabetes mellitus complication detail: without coma Diabetes mellitus type: type 1 Qualified Code(s): E10.10 - Type 1 diabetes mellitus with ketoacidosis without coma Code(s): E11.10 - Type 2 diabetes mellitus with ketoacidosis without coma Status: Acute Assessment and Plan: Patient with hyperglycemia, metabolic gap acidosis, and elevated serum ketones. Patient started on IV fluids and IV insulin and admitted to the ICU. DKA felt related to pump malfunction. Anion gap closed and she was transitioned to SQ Lantus. (2) Type 1 diabetes: Qualifiers: Diabetes mellitus complication status: with ketoacidosis Diabetes mellitus complication detail: without coma Qualified Code(s): E10.10 - Type 1 diabetes mellitus with ketoacidosis without coma Code(s): E10.9 - Type 1 diabetes mellitus without complications Status: Acute Assessment and Plan: A1c 8.8. Patient was seen by the childbirth educator. She wants to transition to SQ insulin now. Plan for her to stay on Lantus 25U QHS and Novolog at mealtimes. She will be carb counting using 1U per 9 carbs and adding a correction dose as well. She states she has all the insulin and supplies that she needs. She has a written out correction factor at bedside. All questions answered. (3) Leukocytosis: Qualifiers: Leukocytosis type: unspecified Qualified Code(s): D72.829 - Elevated white blood cell count, unspecified Code(s): D72.829 - Elevated white blood cell count, unspecified Status: Acute Assessment and Plan: WBC 23.7K on admission. Likely secondary to acute DKA and dehydration. No signs of acute infection at this time. WBC normalized without abx. (4) Dehydration: Code(s): E86.0 - Dehydration Status: Acute Assessment and Plan: Patient received aggressive fluid hydration. BUN and creatinine have remained normal. (5) Depression: Qualifiers: Depression Type: unspecified Qualified Code(s): F32.9 - Major depressive disorder, single episode, unspecified Code(s): F32.9 - Major depressive disorder, single episode, unspecified Status: Acute Assessment and Plan: Mood remained stable. (6) Elevated LFTs: Code(s): R79.89 - Other specified abnormal findings of blood chemistry Status: Acute Assessment and Plan: AST and ALT wee normal on admisison but climbed to 101 and 64 respectfully. Hepatitis panel negative. Patient had a normal right upper quadrant US. No clinical symptoms. Discussed with patient in detail. Will plan to repeat values in the outpatient setting. DS: Summary Hospital Course Reason for hospitalization: 33yo female with DM here for DKA. Please see H&P for details. Hospital Course: Please see above. Status at Discharge Functional status at discharge: independent ambulation Overall status at discharge: patient is back to baseline Time Spent with Patient Time attestation: Total time spent providing and/or coordinating discharge services: 34 minutes Time spent: Greater than 30 minutes Exam Narrative: Exam Narrative: Gen - NARD Chest - CTA bilaterally CV - RRR S1/S2 Abd - soft, NT/ND, +BS Ext - no pedal edema Psych - nml mood and affect Skin - warm and dry DS: Data Data Completed and Pending Labs on day of discharge: Labs from last 24 hours 10/31/19 10/31/19 10/31/19 12:01 07:43 04:27 WBC RBC Hgb Hct MCV MCH MCHC RDW Plt Count MPV Sodium Potassium Chloride Carbon Dioxide BUN Creatinine Estim Creat Clear Calc Estimated GFR Glucose POC Capillary Glucose 251 H 218 H Calcium Phosphorus Magnesium Total Bilirubin
== END 2019-10-31 17:33 | disposition home or self-care (01) | DRG 420 ==
LOC: ANHED 00:38 → ANHICU 01:53
PROVIDERS: Internal Medicine; Admitting Provider Family Medicine; Emergency Provider Emergency Medicine; Visit Provider Family Medicine
DX: E10.10 Type 1 diabetes mellitus with ketoacidosis without coma (principal); Z96.41 Presence of insulin pump (external) (internal); F32.9 Major depressive disorder, single episode, unspecified; E86.0 Dehydration; E87.5 Hyperkalemia; Z79.4 Long term (current) use of insulin; E83.39 Other disorders of phosphorus metabolism
CPT/HCPCS: 36415; 36600; 76705; 80048; 80053; 80069; 80074; 80076; 81001; 81025; 82010; 82040; 82375; 82805; 82948; 83036; 83050; 83735; 84100; 84702; 85025; 85027; 93005; 96361; 96374; 99291; A9270; J0610; J1815; J2405; J3480; J7030; J7050; J7070